=== PATIENT | male | born 1945 | race Caucasian/White ===

== ENCOUNTER → 2023-09-07 07:21 | Outpatient (REF) | payer MEDICARE, SELFPAY ==
[2023-09-07 08:48] LABS: Urine Albumin Negative (Neg - Trace); Urine Bilirubin Negative (Negative); Urine Character Clear (Clear); Urine Color Yellow; Urine Glucose Negative (Negative); Urine Ketone Negative (Negative); Urine Leukocyte Negative (Negative); Urine Nitrite Negative (Negative); Urine Occult Blood Trace (Negative); Urine Specific Gravity 1.015 (<1.030); Urine Urobilinogen Negative (Neg - 1+)
[2023-09-07 09:04] LABS: Urine White Cell 0-2 /HPF (0-5)
[2023-09-07 09:05] LABS: Urine Squamous Cell 0-2 /LPF (Few)
== END ==
LOC: REG 07:21
PROVIDERS: ATTENDING PHYSICIAN Surgery; FAMILY PHYSICIAN Family Medicine
DX: N39.0 Urinary tract infection, site not specified (principal)
CPT/HCPCS: 81003; 81015; 87086

== ENCOUNTER → 2024-04-26 14:24 | Outpatient (REF) | payer MEDICARE, SELFPAY ==
[2024-04-26 15:25] LABS: % Basophils 0.8 % (0-2); % Immature Granulocytes 0.6 % (0-0.5); % Lymphocytes 22.3 % (20.5-51.1); % Monocytes 6.9 % (1.7-9.3); % Neutrophils 67.4 % (42.2-75.2); Absolute Basophils 0.1 10^3/uL (0-0.2); Absolute Eosinophils 0.1 10^3/uL (0-0.7); Absolute Lymphocytes 1.5 10^3/uL (1.2-3.4); Absolute Monocytes 0.5 10^3/uL (0.1-0.6); Absolute Neutrophils 4.4 10^3/uL (1.4-6.5); Mean Corp Hgb Conc. 35.7 g/dL (33.0-37.0); Mean Corpuscular Hgb 29.5 pg (27.0-31.0); Mean Corpuscular Volume 82.7 fL (80.0-94.0); Mean Platelet Volume 9.3 fL (7.4-10.4); Nucleated Red Blood Cells % 0 % (-); Platelet Count 222 10^3/uL (130-400); Red Blood Cell Count 5.08 10^6/uL (4.70-6.10); Red Cell Dist. Width 12.9 % (11.5-14.5); White Blood Cell Count 6.5 10^3/uL (4.8-10.8)
[2024-04-26 16:09] LABS: ALT (SGPT) 25 U/L (0-50); AST (SGOT) 22 U/L (17-59); Albumin 4.5 g/dl (3.5-5.0); Alkaline Phosphatase 71 U/L (38-126); Blood Urea Nitrogen 18 mg/dl (9-20); Calcium 9.6 mg/dl (8.4-10.2); Carbon Dioxide 27 mmol/L (22-30); Chloride 104 mmol/L (98-107); Glucose 99 mg/dl (70-99); Potassium 4.3 mmol/L (3.5-5.1); Sodium 142 mmol/L (135-145); Total Bilirubin 1.6 mg/dl (0.2-1.3); Total Cholesterol 128 mg/dl (50-199); Total Protein 6.7 g/dl (6.3-8.2); Triglyceride 122 mg/dl (10-149); Very Low Density Lipoprotein 24 mg/dl (0-30); eGFR > 60.00
[2024-04-26 16:28] LABS: HDL Cholesterol 33 mg/dl; LDL Cholesterol, Calculated 71 mg/dl
[2024-04-26 18:12] LABS: PSA, Total - Diagnostic 1.82 ng/ml (0.0-4.0); TSH 3.22 uIU/ml (0.47-4.68)
[2024-04-27 10:39] LABS: Glycohemoglobin (HgbA1c) 5.7 % (4.0-5.6)
== END ==
LOC: REG 14:24
PROVIDERS: ATTENDING PHYSICIAN Family Medicine; FAMILY PHYSICIAN Surgery
DX: Z12.5 Encounter for screening for malignant neoplasm of prostate (principal); E66.3 Overweight; Z00.00 Encounter for general adult medical examination without abnormal findings; R73.03 Prediabetes; E78.2 Mixed hyperlipidemia
CPT/HCPCS: 80053; 80061; 83036; 84153; 84443; 85025

== ENCOUNTER → 2024-05-01 14:51 | Outpatient (REF) | payer MEDICARE, SELFPAY | LOC: HWRAD 14:51 | PROVIDERS: ATTENDING PHYSICIAN Family Medicine | DX: R91.1 Solitary pulmonary nodule (principal) | CPT/HCPCS: 71250 ==

== ENCOUNTER 2024-07-11 06:20 | Day surgery (SDC) | payer MEDICARE, SELFPAY | END 2024-07-11 10:38 | disposition home or self-care (01) | LOC: GI 06:20 | PROVIDERS: ATTENDING PHYSICIAN Internal Medicine Gastroenterology; FAMILY PHYSICIAN Family Medicine | DX: K21.9 Gastro-esophageal reflux disease without esophagitis (principal); K44.9 Diaphragmatic hernia without obstruction or gangrene; K31.7 Polyp of stomach and duodenum; K29.70 Gastritis, unspecified, without bleeding; K22.89 Other specified disease of esophagus | CPT/HCPCS: 43251; 88305; 88342 ==

== ENCOUNTER → 2024-11-06 08:42 | Outpatient (REF) | payer MEDICARE, SELFPAY ==
[2024-11-06 09:23] LABS: Urine Albumin Negative (Neg - Trace); Urine Bilirubin Negative (Negative); Urine Character Clear (Clear); Urine Color Yellow; Urine Glucose Negative (Negative); Urine Ketone Negative (Negative); Urine Leukocyte Negative (Negative); Urine Nitrite Negative (Negative); Urine Occult Blood 1+ (Negative); Urine Specific Gravity 1.015 (<1.030); Urine Urobilinogen Negative (Neg - 1+)
[2024-11-06 10:19] LABS: Urine Squamous Cell 0-2 /LPF (Few); Urine White Cell 0-2 /HPF (0-5)
[2024-11-06 10:28] LABS: Urine Protein < 5 mg/dl
[2024-11-06 10:51] LABS: Uric Acid 7.2 mg/dl (3.5-8.5)
== END ==
LOC: REG 08:42
PROVIDERS: ATTENDING PHYSICIAN Specialist; FAMILY PHYSICIAN Family Medicine
DX: R31.9 Hematuria, unspecified (principal); M10.9 Gout, unspecified
CPT/HCPCS: 36415; 81003; 81015; 82570; 84156; 84550